=== PATIENT | female | born 1970 | race Caucasian/White ===

== ENCOUNTER 2017-03-12 00:28 | Emergency (ER) | payer BC, OTHER ==
[~2017-03-12] VITALS: Ht 165.1 cm; Wt 97.5 kg
[~2017-03-12 00:28] MED LIST: BP MED; DICL75TA2 PO; DOCU100C37 PO; FAMO20TA5 PO; HYDR-3720 PO; HYDR-3816 PO; IBUP-1773 PO; KETO-22 PO; MAG30ORA2 PO; METH750T3 PO; ORPH100T PO; PHEN37.53 PO; PRD20T PO; PRM25T PO; SIME80TA16 PO; SPIR50TA2 PO; TOPI25TA10 PO; TRAM-21 PO; Throat Lozenges MT
[2017-03-12] MEDS ORDERED: NS IV 1000 ML 1,000 ML IV STA (00:55)
[2017-03-12] MEDS ORDERED: ONDANSETRON 4 MG/2 ML (SDV) Z0FRAN IVP ONE (01:00)
--- NOTE | 2017-03-12 01:01 | ED Abdominal Pain ---
General Chief Complaint: Abdominal/GI Problems Stated Complaint: FLU VOMITING HAD 2 DRINKS Source of Information: Patient Exam Limitations: No Limitations History of Present Illness Time Seen By Provider: 00:45 Initial Comments Here with report of vomiting tonight. Apparently started feeling sick about 4 days ago and had a vomiting and diarrhea illness for 2 days and then was getting better. She is recently going through a divorce and wanted to celebrate jose ramon with her family. She had 2 drinks tonight and then started vomiting. She vomited multiple times tonight and states she does not feel well. Denies diarrhea. She lives with her mother who apparently has had strep throat and influenza a recently. Timing/Duration: 3-4 Days, Getting Worse Severity/Quality: Moderate, Cramping Location: Epigastric Radiation: No Radiation Activities at Onset: None Associated Symptoms: No Back Pain, No Chest Pain, Fever/Chills, Fatigue, Nausea /Vomiting, Weakness Allergies and Home Medications Allergies Coded Allergies: Penicillins (Verified Adverse Reaction, Mild, PT FATHER ALLERGIC, PT HERSELF HAS NOT REACTED TO PCN, 02/18/07) Home Medications Diclofenac Sodium 75 Mg Tablet.dr, 75 MG PO BID, (Reported) Docusate Sodium 100 Mg Capsule, 100 MG PO BID PRN for CONSTIPATION, #60 Prescribed by: ENDER BOLAÑOS on 04/27/151845 Hydrocodone/Acetaminophen 1 Each Tablet, 1-2 EA PO Q6H PRN for PAIN, #45 Ref 0 Prescribed by: ENDER BOLAÑOS on 04/27/151844 Ibuprofen 600 Mg Tablet, 600 MG PO Q6H PRN for PAIN, #40 Ref 1 Prescribed by: ENDER BOLAÑOS on 04/27/151844 Mag Hydrox/Al Hydrox/Simeth 30 Ml Oral.susp, 30 ML PO QID PRN for INDIGESTION, # 1 Prescribed by: ENDER BOLAÑOS on 04/27/151845 Phentermine HCl 37.5 Mg Tablet, 56.25 MG PO DAILY, (Reported) TAKE 1 & 1/2 OF 37.5 TAB Simethicone 80 Mg Tab.chew, 40 MG PO TID PRN for INDIGESTION, #60 Prescribed by: ENDER BOLAÑOS on 04/27/151845 Spironolactone 50 Mg Tablet, 50 MG PO DAILY, (Reported) Topiramate 25 Mg Tablet, 25 MG PO DAILY, (Reported) [Throat Lozenges] 1 EA LOZG, 1 EA MT Q3H PRN for SORE THROAT Prescribed by: ENDER BOLAÑOS on 04/27/15 1846 Review of Systems Constitutional: see HPI, No chills, No fever, malaise EENTM: No Symptoms Reported Respiratory: No Symptoms Reported Cardiovascular: No Symptoms Reported Gastrointestinal: See HPI, Abdominal Pain, Diarrhea, Nausea, Vomiting Genitourinary: No Symptoms Reported Musculoskeletal: No joint pain, muscle pain Skin: no symptoms reported Psychiatric/Neurological: No Symptoms Reported Past Mxbabtm-Ahlekq-Vaojnv Hx Patient Social History Alcohol Use: Occasionally Uses Recreational Drug Use: No Smoking Status: Former Smoker Type Used: Cigarettes 2nd Hand Smoke Exposure: No Recent Foreign Travel: No Contact w/Someone Who Travel: No Recent Hopitalizations: No Seasonal Allergies Seasonal Allergies: No Surgeries History of Surgeries: Yes (ECTOPIC W/ SALPINGECTOMY, RHINOPLASTY) Surgeries: Bladder Surgery, Hysterectomy, Tubal Ligation Respiratory History of Respiratory Disorde: No Respiratory Disorders: Asthma Cardiovascular History of Cardiac Disorders: Yes Cardiac Disorders: Hypertension Neurological History of Neurological Disord: No Neurological Disorders: Headaches /Migraines 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 System Hx 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 Disorders: Yes Sexually Transmitted Disease: Yes (HX OF PID) 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 Gastrointestinal History of Gastrointestinal Di: Yes (ELEVATED LIVER ENZYMES, ) Musculoskeletal History of Musculoskeletal Dis: No Musculoskeletal Disorders: Arthritis Endocrine History of Endocrine Disorders: Yes (USED TO TAKE THYROID MEDS) Endocrine Disorders: Hypothyroidsim Cancer History of Cancer: No Psychosocial History of Psychiatric Problem: Yes Behavioral Health Disorders: Depression Integumentary History of Skin or Integumenta: No Blood Transfusions History of Blood Disorders: No Reviewed Nursing Assessment Reviewed/Agree w Nursing PMH: Yes Family Medical History Significant Family History: No Pertinent Family Hx Family Medial History: Drug abuse 19 FATHER Thyroid disease 19 MOTHER Physical Exam Vital Signs VS - Last 72 Hours, by Label 03/12/17 00:45 Temp 97.0 Pulse 66 Resp 20 B/P (MAP) 144/95 (111) Pulse Ox 100 O2 Delivery Room Air Capillary Refill : General Appearance: WD/WN, no apparent distress HEENT: PERRL/EOMI, pharynx normal Neck: full range of motion, supple Respiratory: lungs clear, normal breath sounds Cardiovascular: regular rate, rhythm, no murmur Gastrointestinal: normal bowel sounds, non tender, soft Extremities: non-tender, normal inspection Back: normal inspection, no CVA tenderness, no vertebral tenderness Neurologic/Psychiatric: alert, oriented x 3 Skin: normal color, warm/dry Progress/Results/Core Measures Results/Orders Lab Results Laboratory Tests Test 03/12/17 01:05 03/12/17 01:52 Range/Units White Blood Count 9.0 4.3-11.0 10^3/uL Red Blood Count 4.49 4.35-5.85 10^6/uL Hemoglobin 14.4 11.5-16.0 G/DL Hematocrit 43 35-52 % Mean Corpuscular Volume 95 80-99 FL Mean Corpuscular Hemoglobin 32 25-34 PG Mean Corpuscular Hemoglobin Concent 34 32-36 G/DL Red Cell Distribution Width 12.4 10.0-14.5 % Platelet Count 319 130-400 10^3/uL Mean Platelet Volume 8.5 7.4-10.4 FL Neutrophils (%) (Auto) 58 42-75 % Lymphocytes (%) (Auto) 31 12-44 % Monocytes (%) (Auto) 8 0-12 % Eosinophils (%) (Auto) 3 0-10 % Basophils (%) (Auto) 0 0-10 % Neutrophils # (Auto) 5.2 1.8-7.8 X 10^3 Lymphocytes # (Auto) 2.8 1.0-4.0 X 10^3 Monocytes # (Auto) 0.7 0.0-1.0 X 10^3 Eosinophils # (Auto) 0.2 0.0-0.3 10^3/uL Basophils # (Auto) 0.0 0.0-0.1 10^3/uL Sodium Level 141 135-145 MMOL/L Potassium Level 3.8 3.6-5.0 MMOL/L Chloride Level 107 98-107 MMOL/L Carbon Dioxide Level 24 21-32 MMOL/L Anion Gap 10 5-14 MMOL/L Blood Urea Nitrogen 20 H 7-18 MG/DL Creatinine 0.72 0.60-1.30 MG/DL Estimat Glomerular Filtration Rate > 60 BUN/Creatinine Ratio 28 Glucose Level 119 H 70-105 MG/DL Calcium Level 8.7 8.5-10.1 MG/DL Total Bilirubin 0.3 0.1-1.0 MG/DL Aspartate Amino Transf (AST/SGOT) 26 5-34 U/L Alanine Aminotransferase (ALT/SGPT) 31 0-55 U/L Alkaline Phosphatase 70 40-136 U/L Total Protein 6.8 6.4-8.2 GM/DL Albumin 3.9 3.2-4.5 GM/DL Serum Alcohol 127 H <10 MG/DL Urine Color YELLOW Urine Clarity CLEAR Urine pH 6 5-9 Urine Specific Kramer 1.020 1.016-1.022 Urine Protein NEGATIVE NEGATIVE Urine Glucose (UA) NEGATIVE NEGATIVE Urine Ketones NEGATIVE NEGATIVE Urine Nitrite NEGATIVE NEGATIVE Urine Bilirubin NEGATIVE NEGATIVE Urine Urobilinogen NORMAL NORMAL MG/DL Urine Leukocyte Esterase 2+ H NEGATIVE Urine RBC (Auto) 4+ H NEGATIVE Urine RBC 2-5 H /HPF Urine WBC 0-2 /HPF Urine Squamous Epithelial Cells 25-50 H /HPF Urine Crystals NONE /LPF Urine Bacteria TRACE /HPF Urine Casts NONE /LPF Urine Mucus NEGATIVE /LPF Urine Culture Indicated NO My Orders Orders - LENNOX GAGNON MD Alcohol (03/12/17 00:55) Cbc With Automated Diff (03/12/17 00:55) Comprehensive Metabolic Panel (03/12/17 00:55) Ua Culture If Indicated (03/12/17 00:55) Ondansetron Injection (Zofran Injectio (03/12/17 01:00) Ns Iv 1000 Ml (Sodium Chloride 0.9%) (03/12/17 00:55) Saline Lock/Iv-Start (03/12/17 00:55) Ns Iv 1000 Ml (Sodium Chloride 0.9%) (03/12/17 01:40) Medications Given in ED Current Medications Medications Dose Ordered Sig/Miah Route Start Time Stop Time Status Last Admin Dose Admin Ondansetron HCl 4 mg ONCE ONCE IVP 03/12/17 01:00 03/12/17 01:01 DC 03/12/17 01:05 4 MG Sodium Chloride 1,000 ml @ 0 mls/hr Q0M ONCE IV 03/12/17 01:40 03/12/17 01:41 DC 03/12/17 02:15 0 MLS/HR Vital Signs/I&O Vital Sign - Last 12Hours 03/12/17 00:45 Temp 97.0 Pulse 66 Resp 20 B/P (MAP) 144/95 (111) Pulse Ox 100 O2 Delivery Room Air Progress Note : Progress Note Seen and evaluated. IV, labs and UA ordered. Normal saline 1 L bolus. Zofran 4 mg IV. Monitor patient. 0205: Overall much better. Repeat normal saline 1 L bolus ordered. Discharged home after with return precautions. Patient verbalize understanding instructions and agreement with plan. Departure Impression Impression: Primary Impression: Nausea and vomiting Qualified Codes: R11.2 - Nausea with vomiting, unspecified Additional Impression: Epigastric abdominal pain Disposition: HOME, SELF-CARE Condition: Improved Departure-Patient Inst. Decision time for Depature: 02:27 Referrals: MOHINDER MARIN DO (PCP/Family) Primary Care Physician Patient Instructions: Acute Abdomen (Belly Pain), Adult (DC), Nausea and Vomiting, Adult (DC) Add. Discharge Instructions: All discharge instructions reviewed with patient and/or family. Voiced understanding. Clear liquid diet for 24 hours and then advance as tolerated. Follow-up with your Dr. in a few days for recheck. Return for worse pain, fever, vomiting, weakness, breathing problems or other concerns as needed. Drink plenty of fluids been taking small sips frequently. LENNOX GAGNON MD Mar 12, 2017 01:01
[2017-03-12 01:11] LABS: BASOPHILS % (AUTO) 0 % (0-10); EOSINOPHILS # (AUTO) 0.2 10^3/uL (0.0-0.3); EOSINOPHILS % (AUTO) 3 % (0-10); HEMATOCRIT 43 % (35-52); HEMOGLOBIN 14.4 G/DL (11.5-16.0); LYMPHOCYTES # (AUTO) 2.8 X 10^3 (1.0-4.0); LYMPHOCYTES % (AUTO) 31 % (12-44); MEAN CORPUSCULAR HEMOGLOBIN 32 PG (25-34); MEAN CORPUSCULAR HGB CONC 34 G/DL (32-36); MEAN CORPUSCULAR VOLUME 95 FL (80-99); MEAN PLATELET VOLUME 8.5 FL (7.4-10.4); MONOCYTES # (AUTO) 0.7 X 10^3 (0.0-1.0); MONOCYTES % (AUTO) 8 % (0-12); NEUTROPHILS # (AUTO) 5.2 X 10^3 (1.8-7.8); NEUTROPHILS % (AUTO) 58 % (42-75); PLATELET COUNT 319 10^3/uL (130-400); RED BLOOD COUNT 4.49 10^6/uL (4.35-5.85); RED CELL DISTRIBUTION WIDTH 12.4 % (10.0-14.5)
[2017-03-12 01:31] LABS: ALANINE AMINOTRANSFERASE 31 U/L (0-55); ALBUMIN 3.9 GM/DL (3.2-4.5); ALKALINE PHOSPHATASE 70 U/L (40-136); BILIRUBIN,TOTAL 0.3 MG/DL (0.1-1.0); BUN/CREATININE RATIO 28; CALCIUM 8.7 MG/DL (8.5-10.1); CARBON DIOXIDE 24 MMOL/L (21-32); CHLORIDE 107 MMOL/L (98-107); CREATININE SERUM 0.72 MG/DL (0.60-1.30); GFR ESTIMATED > 60; GLUCOSE 119 MG/DL (70-105); POTASSIUM 3.8 MMOL/L (3.6-5.0); SODIUM 141 MMOL/L (135-145); TOTAL PROTEIN 6.8 GM/DL (6.4-8.2)
[2017-03-12] MEDS ORDERED: NS IV 1000 ML 1,000 ML IV ONE (01:40)
[2017-03-12 02:01] LABS: BILIRUBIN,URINE NEGATIVE (NEGATIVE); CLARITY,URINE CLEAR; COLOR,URINE YELLOW; GLUCOSE, URINE (UA) NEGATIVE (NEGATIVE); KETONES,URINE NEGATIVE (NEGATIVE); LEUKOCYTE ESTERASE ,URINE 2+ (NEGATIVE); NITRITE,URINE NEGATIVE (NEGATIVE); PH,URINE 6 (5-9); PROTEIN,URINE NEGATIVE (NEGATIVE); UROBILINOGEN,URINE NORMAL (NORMAL)
[2017-03-12 02:18] LABS: BACTERIA,URINE TRACE /HPF; SQUAMOUS EPITHELIAL CELL,UR 25-50 /HPF; WBC,URINE 0-2 /HPF
[2017-03-13 02:06] VITALS: BP 144/95
== END 2017-03-12 03:10 | disposition home or self-care (01) ==
LOC: EDUNIT# 00:28 → ER 00:31
DX: R11.2 Nausea with vomiting, unspecified (principal); R10.13 Epigastric pain; J45.909 Unspecified asthma, uncomplicated; I10 Essential (primary) hypertension; G43.909 Migraine, unspecified, not intractable, without status migrainosus; E03.9 Hypothyroidism, unspecified; Z87.891 Personal history of nicotine dependence; Z90.710 Acquired absence of both cervix and uterus; Z98.51 Tubal ligation status
CPT/HCPCS: 36415; 80053; 80320; 81000; 85025

== ENCOUNTER 2017-04-14 18:00 | Emergency (ER) | payer BC ==
[~2017-04-14] VITALS: Ht 167.6 cm; Wt 97.5 kg
[~2017-04-14 18:00] MED LIST changes: +HYDR-34 PO; -HYDR-3816 PO
--- OUTSIDE RECORDS SUMMARY | 2017-04-14 18:05 | XMS REPORT | CCD ---
Author Author HORACIO BERRY Unknown Address [address] [address] [place] [address] Care Team Providers Care Crisis Counselor Name Role Phone PEDRITO SAUL MD Attphys RENATA ANGEL, FELI Delgado Allergies Unknown or Not Available. Active Medications Unknown or Not Available. Problems Unknown or Not Available. Procedures Procedure Code Procedure Type Date CERVICAL SPINE; 2 VIEWS OR [id number] Results Unknown or Not Available. Encounters Encounter Diagnosis Diagnosis Code Start Date Strain of muscle, fascia and tendon at neck level, initial encounter [id number] 04/30/2016 Function Status Unknown or Not Available. History of Immunizations Immunization Code Date influenza, split (incl. purified surface antigen) 15 01/23/2002 Plan of Treatment Unknown or Not Available. Social History Unknown or Not Available. Vital Signs Unknown or Not Available. Function Status Unknown or Not Available. Goals Unknown or Not Available. ASSESSMENTS Unknown or Not Available. Health Concerns Section Unknown or Not Available.
[2017-04-14] MEDS ORDERED: ONDANSETRON 4 MG (ZOFRAN) ORAL DISSOLVE TAB PO ONE (19:00)
[2017-04-14] MEDS ORDERED: KETOROLAC 30 MG/ML VIAL IM ONE (19:00)
--- NOTE | 2017-04-14 19:05 | ED Neck-Back Pain/Injury ---
General Chief Complaint: Head/Cervical Problems Stated Complaint: NAUSEA,HEADACHE Nursing Triage Note: c/o headache/nausea. Reports right arm pain x 3 months. Pt thought it was related to her flu shot. Also reports history or fever/cough/chills 2 weeks ago but those symptoms have resolved. Pt has a OP Rx (EKG, carotid doppler) signed by Dr. Mendez that she has not been performed yet with her. Nursing Sepsis Screen: No Definite Risk Source of Information: Patient Exam Limitations: No Limitations History of Present Illness Date Seen by Provider: Apr 14, 2017 Time Seen by Provider: 18:52 Initial Comments Patient resists ER by private conveyance with a three-month history of waxing and waning neck and back pain. Mostly in her upper neck. No history of trauma. She's been seen by her primary care physician is doing some workup, labs and imaging but she was looking for something to help with the pain today. She is using Tylenol and heating pads. The pain in her neck was eating or headache so severe when she woke up this morning she was having some nausea. She has not vomited she has no fevers, chills, cough, lays. 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 Patient was afraid to go to the chiropractor until she had her back imaging and she is afraid she might have some kind of a herniated disc or something that a chiropractor might make worse. The patient is denying anything, some bowel bladder, numbness, weakness, falls, blurry vision, double vision. Her pain some times radiates down her right shoulder with a tingling sensation. An hour and a half prior to arrival the patient took 2 Excedrin migraine tablets and she's feels that her headache has resolved almost completely now. Allergies and Home Medications Allergies Coded Allergies: Penicillins (Verified Adverse Reaction, Mild, PT FATHER ALLERGIC, PT HERSELF HAS NOT REACTED TO PCN, 02/18/07) Home Medications Diclofenac Sodium 75 Mg Tablet., 75 MG PO BID, (Reported) Docusate Sodium 100 Mg Capsule, 100 MG PO BID PRN for CONSTIPATION, #60 Prescribed by: ENDER BOLAÑOS on 04/27/15 2515 Hydrocodone Bit/Acetaminophen 1 Each Tablet, 1-2 EA PO Q6H PRN for PAIN, #45 Ref 0 Prescribed by: ENDER BOLAÑOS on 04/27/151844 Ibuprofen 600 Mg Tablet, 600 MG PO Q6H PRN for PAIN, #40 Ref 1 Prescribed by: ENDER BOLAÑOS on 04/27/151844 Mag Hydrox/Al Hydrox/Simeth 30 Ml Oral.susp, 30 ML PO QID PRN for INDIGESTION, # 1 Prescribed by: ENDER BOLAÑOS on 04/27/151845 Phentermine HCl 37.5 Mg Tablet, 56.25 MG PO DAILY, (Reported) TAKE 1 & 1/2 OF 37.5 TAB Simethicone 80 Mg Tab.chew, 40 MG PO TID PRN for INDIGESTION, #60 Prescribed by: ENDER BOLAÑOS on 04/27/151845 Spironolactone 50 Mg Tablet, 50 MG PO DAILY, (Reported) Topiramate 25 Mg Tablet, 25 MG PO DAILY, (Reported) [Throat Lozenges] 1 EA LOZG, 1 EA MT Q3H PRN for SORE THROAT Prescribed by: ENDER BOLAÑOS on 04/27/151845 Constitutional: No chills, No diaphoresis EENTM: No ear discharge, No ear pain Respiratory: No cough, No short of breath Cardiovascular: No chest pain, No palpitations Gastrointestinal: No abdominal pain, No nausea, No vomiting Genitourinary: No discharge, No dysuria Past Ahqjwal-Avbkdy-Hcyzkm Hx Patient Social History Alcohol Use: Occasionally Uses Recreational Drug Use: No Smoking Status: Current Everyday Smoker Type Used: Cigarettes 2nd Hand Smoke Exposure: No Recent Foreign Travel: No Contact w/Someone Who Travel: No Recent Infectious Disease Expo: No Recent Hopitalizations: No Seasonal Allergies Seasonal Allergies: No Surgeries History of Surgeries: Yes (ECTOPIC W/ SALPINGECTOMY, RHINOPLASTY) Surgeries: Bladder Surgery, Hysterectomy, Tubal Ligation Respiratory History of Respiratory Disorde: No Respiratory Disorders: Asthma Cardiovascular History of Cardiac Disorders: Yes Cardiac Disorders: Hypertension Neurological History of Neurological Disord: No Neurological Disorders: Headaches /Migraines 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 System Hx 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 Disorders: Yes Sexually 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 Disease: Yes (HX OF PID) 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 Gastrointestinal History of Gastrointestinal Di: Yes (ELEVATED LIVER ENZYMES, ) Musculoskeletal History of Musculoskeletal Dis: No Musculoskeletal Disorders: Arthritis Endocrine History of Endocrine Disorders: Yes (USED TO TAKE THYROID MEDS) Endocrine Disorders: Hypothyroidsim Cancer History of Cancer: No Psychosocial History of Psychiatric Problem: Yes Behavioral Health Disorders: Depression Integumentary History of Skin or Integumenta: No Blood Transfusions History of Blood Disorders: No Family Medical History Significant Family History: No Pertinent Family Hx Family Medial History: Drug abuse 19 FATHER Thyroid disease 19 MOTHER Physical Exam Vital Signs Vital Sign - Last 12Hours 04/14/17 18:25 Temp 98.1 Pulse 82 Resp 16 B/P (MAP) 163/111 (128) Pulse Ox 98 O2 Delivery Room Air Capillary Refill : Less Than 3 Seconds General Appearance: No Apparent Distress, WD/WN HEENT: PERRL/EOMI, TMs Normal, Normal ENT Inspection, Pharynx Normal Neck: Full Range of Motion, Normal Inspection, Non Tender, Supple Cardiovascular: Regular Rate, Rhythm, No Edema, No Gallop, No JVD, No Murmur, Normal Peripheral Pulses Respiratory: Chest Non Tender, Lungs Clear, Normal Breath Sounds Peripheral Pulses: 2+ Radial Pulses (R), 2+ Radial Pulses (L) Back: Normal Inspection, Other (midline cervical spine at C5 through C7 as well as right lateral neck posterior tenderness.) Extremity: Normal Capillary Refill, Normal Inspection Neurologic/Psychiatric: Alert, Oriented x3, No Motor/Sensory Deficits, Normal Mood/Affect Progress/Results/Core Measures Results/Orders My Orders Orders - PATI GARCIA Ondansetron Oral Dissolve Tab (Zofran (04/14/17 19:00) Ketorolac Injection (Toradol Injection) (04/14/17 19:00) Vital Signs/I&O Vital Sign - Last 12Hours 04/14/17 18:25 Temp 98.1 Pulse 82 Resp 16 B/P (MAP) 163/111 (128) Pulse Ox 98 O2 Delivery Room Air Blood Pressure Mean: 128 Progress Note : Time: 19:02 Progress Note No red flags for her pain. Appears to be chronic in nature and recurrent. We'll start with some NSAID therapy, heat ice, muscle relaxers and something for her nausea and have her follow-up with her primary care physician. Departure Impression Impression: Primary Impression: Neck pain Additional Impressions: Nausea Headache Qualified Codes: G44.209 - Tension-type headache, unspecified, not intractable Disposition: 01 HOME, SELF-CARE Condition: Stable Departure-Patient Inst. Decision time for Depature: 19:06 Referrals: MOHINDER MARIN DO (PCP/Family) Primary Care Physician Patient Instructions: Neck Stretches Add. Discharge Instructions: Drink plenty of fluids and use some kind of an NSAID routinely for the next week or 2. I suggest either 2 capsules of Naprosyn twice a day or ibuprofen 800 mg 3 times a day. You can use 1000 mg of Tylenol every 8 hours as needed for breakthrough pain. If you're having muscle tension or spasming you can take one tablet of Flexeril every 8 hours. If you have nausea you can take a tablet of Zofran every 6 hours. Follow-up with your primary care physician for further evaluation and management of your back and neck pain. Review the handout on neck exercises and work to strengthen her core muscles. All discharge instructions reviewed with patient and/or family. Voiced understanding. Scripts Cyclobenzaprine HCl (Cyclobenzaprine HCl) 10 Mg Tablet 10 MG PO Q8H Y for SPASMS, #15 TAB 0 Refills Prov: PATI GARCIA 04/14/17 Ondansetron (Zofran Odt) 4 Mg Tab.rapdis 4 MG PO Q6H Y for NAUSEA/VOMITING-1ST LINE, #10 TAB 0 Refills Prov: PATI GARCIA 04/14/17 Copy Copies To 1: MOHINDER MARIN TITUS J Apr 14, 2017 19:05
[2017-04-14] MEDS ORDERED: CYCL10TA9 PO (19:09)
[2017-04-14] MEDS ORDERED: ONDA4TAB8 PO (19:09)
[2017-04-14] MEDS ORDERED: RX-CYCLOBENZAPRINE 10 MG (FLEXERIL) TAB PPK#3 PO STA (19:12)
[2017-04-14 19:23] VITALS: BP 154/108
== END 2017-04-14 19:23 | disposition home or self-care (01) ==
LOC: EDUNIT# 18:00 → ER 18:02
DX: M54.2 Cervicalgia (principal); R51 Headache; R11.0 Nausea; J45.909 Unspecified asthma, uncomplicated; I10 Essential (primary) hypertension; F32.9 Major depressive disorder, single episode, unspecified; E03.9 Hypothyroidism, unspecified; G43.909 Migraine, unspecified, not intractable, without status migrainosus; F17.210 Nicotine dependence, cigarettes, uncomplicated; Z98.51 Tubal ligation status; Z90.710 Acquired absence of both cervix and uterus; Z88.0 Allergy status to penicillin
CPT/HCPCS: 96372; 99283

== ENCOUNTER → 2017-04-17 | Outpatient (CLI) | payer BC ==
[~2017-04-17] MED LIST changes: +CYCL10TA9 PO; +ONDA4TAB8 PO
--- NOTE | 2017-04-17 17:01 | Diagnostic Imaging Report ---
PROCEDURE: US carotid duplex, bilateral. TECHNIQUE: Multiple real-time grayscale images were obtained over the carotid arteries in various projections, bilaterally. Additional duplex Doppler and color Doppler images were also obtained. INDICATION: Neck pain, numbness in arms. FINDINGS: There is little soft plaque formation in the carotid systems. The flow velocities failed to show any sign of a hemodynamically significant stenosis of the common or internal carotid arteries. Both vertebral arteries are noted and there is antegrade flow bilaterally. IMPRESSION: There is no evidence for a hemodynamically significant stenosis of either carotid system. Dictated by: Dictated on workstation # [id number]
--- NOTE | 2017-04-17 17:12 | Diagnostic Imaging Report ---
EXAMINATION: Cervical spine. INDICATION: Neck pain. FINDINGS: AP, lateral and odontoid views were obtained. There are no prior studies available for comparison. The lateral view does show straightening of the cervical spine. This may be secondary to muscle spasm and/or positioning. The vertebral body heights are within normal limits. There is mild narrowing of the C6-C7 disc space. The other intervertebral disc spaces are fairly well maintained. There is no fracture or acute bony abnormality evident. There is no sign of retropharyngeal edema. The lung apices are clear. IMPRESSION: 1. The straightening of the cervical spine may be secondary to muscle spasm and/or positioning. There is no acute bony abnormality noted. 2. There is mild degenerative disc disease at C6-C7. 3. If clinical concern regarding an underlying abnormality persists, then MRI will be recommended for further study. Dictated by: Dictated on workstation # [id number]
== END ==
LOC: RAD 16:09
PROVIDERS: ATTEND Nurse Practitioner Family
DX: M50.323 Other cervical disc degeneration at C6-C7 level (principal); R20.0 Anesthesia of skin
CPT/HCPCS: 72040; 93880

== ENCOUNTER → 2018-01-28 | Outpatient (CLI) | payer BC ==
[~2018-01-28] MED LIST changes: -SPIR50TA2 PO; +SPIR50TA4 PO
[2018-01-28 18:07] LABS: HEMOGLOBIN 13.9 G/DL (11.5-16.0); MEAN PLATELET VOLUME 8.3 FL (7.4-10.4); RED BLOOD COUNT 4.49 10^6/uL (4.35-5.85); RED CELL DISTRIBUTION WIDTH 12.4 % (10.0-14.5); WHITE BLOOD COUNT 7.9 10^3/uL (4.3-11.0)
[2018-01-28 18:15] LABS: BILIRUBIN,URINE NEGATIVE (NEGATIVE); CLARITY,URINE CLEAR; COLOR,URINE YELLOW; GLUCOSE, URINE (UA) NEGATIVE (NEGATIVE); KETONES,URINE 1+ (NEGATIVE); LEUKOCYTE ESTERASE ,URINE NEGATIVE (NEGATIVE); NITRITE,URINE NEGATIVE (NEGATIVE); PH,URINE 6 (5-9); PROTEIN,URINE NEGATIVE (NEGATIVE); UROBILINOGEN,URINE NORMAL (NORMAL)
[2018-01-28 18:21] LABS: BACTERIA,URINE NEGATIVE /HPF
[2018-01-28 18:27] LABS: ALANINE AMINOTRANSFERASE 21 U/L (0-55); ALBUMIN 4.2 GM/DL (3.2-4.5); ALKALINE PHOSPHATASE 76 U/L (40-136); BILIRUBIN,TOTAL 0.7 MG/DL (0.1-1.0); BUN/CREATININE RATIO 16; CALCIUM 8.9 MG/DL (8.5-10.1); CARBON DIOXIDE 22 MMOL/L (21-32); CHLORIDE 107 MMOL/L (98-107); CREATININE SERUM 0.82 MG/DL (0.60-1.30); GFR ESTIMATED > 60; GLUCOSE 84 MG/DL (70-105); POTASSIUM 3.4 MMOL/L (3.6-5.0); SODIUM 137 MMOL/L (135-145); TOTAL PROTEIN 7.1 GM/DL (6.4-8.2)
--- NOTE | 2018-01-28 18:51 | Diagnostic Imaging Report ---
INDICATION: Preop, varicosities. FINDINGS: Cardiomediastinal and hilar contours are normal. The lungs are clear. No vascular congestion, edema, pneumonia, effusion, or pneumothorax. IMPRESSION: Negative. Dictated by: Dictated on workstation # [id number]
== END ==
LOC: LAB 17:45
PROVIDERS: ATTEND Family Medicine
DX: Z01.811 Encounter for preprocedural respiratory examination (principal); Z01.812 Encounter for preprocedural laboratory examination; I83.90 Asymptomatic varicose veins of unspecified lower extremity
CPT/HCPCS: 36415; 71046; 80053; 81000; 85027

== ENCOUNTER → 2018-02-05 | Outpatient (CLI) | payer BC ==
[2018-02-05 12:43] LABS: BASOPHILS % (AUTO) 0 % (0-10); EOSINOPHILS # (AUTO) 0.2 10^3/uL (0.0-0.3); EOSINOPHILS % (AUTO) 2 % (0-10); HEMATOCRIT 43 % (35-52); HEMOGLOBIN 14.5 G/DL (11.5-16.0); LYMPHOCYTES # (AUTO) 2.9 X 10^3 (1.0-4.0); LYMPHOCYTES % (AUTO) 33 % (12-44); MEAN CORPUSCULAR HEMOGLOBIN 31 PG (25-34); MEAN CORPUSCULAR HGB CONC 34 G/DL (32-36); MEAN CORPUSCULAR VOLUME 93 FL (80-99); MEAN PLATELET VOLUME 8.4 FL (7.4-10.4); MONOCYTES # (AUTO) 0.8 X 10^3 (0.0-1.0); MONOCYTES % (AUTO) 9 % (0-12); NEUTROPHILS # (AUTO) 4.9 X 10^3 (1.8-7.8); NEUTROPHILS % (AUTO) 56 % (42-75); PLATELET COUNT 368 10^3/uL (130-400); RED BLOOD COUNT 4.64 10^6/uL (4.35-5.85); RED CELL DISTRIBUTION WIDTH 12.8 % (10.0-14.5); WHITE BLOOD COUNT 8.8 10^3/uL (4.3-11.0)
[2018-02-05 12:48] LABS: BILIRUBIN,URINE NEGATIVE (NEGATIVE); CLARITY,URINE CLEAR; COLOR,URINE YELLOW; GLUCOSE, URINE (UA) NEGATIVE (NEGATIVE); KETONES,URINE 1+ (NEGATIVE); LEUKOCYTE ESTERASE ,URINE NEGATIVE (NEGATIVE); NITRITE,URINE NEGATIVE (NEGATIVE); PH,URINE 5 (5-9); PROTEIN,URINE NEGATIVE (NEGATIVE); UROBILINOGEN,URINE NORMAL (NORMAL)
[2018-02-05 12:59] LABS: BACTERIA,URINE NEGATIVE /HPF; SQUAMOUS EPITHELIAL CELL,UR 0-2 /HPF; WBC,URINE RARE /HPF
[2018-02-05 13:00] LABS: ALANINE AMINOTRANSFERASE 22 U/L (0-55); ALBUMIN 4.4 GM/DL (3.2-4.5); ALKALINE PHOSPHATASE 73 U/L (40-136); BILIRUBIN,TOTAL 0.8 MG/DL (0.1-1.0); BUN/CREATININE RATIO 17; CALCIUM 9.4 MG/DL (8.5-10.1); CARBON DIOXIDE 22 MMOL/L (21-32); CHLORIDE 104 MMOL/L (98-107); CREATININE SERUM 0.84 MG/DL (0.60-1.30); GFR ESTIMATED > 60; GLUCOSE 99 MG/DL (70-105); POTASSIUM 3.7 MMOL/L (3.6-5.0); SODIUM 138 MMOL/L (135-145); TOTAL PROTEIN 7.3 GM/DL (6.4-8.2)
== END ==
LOC: LAB 12:27
PROVIDERS: ATTEND Thoracic Surgery (Cardiothoracic Vascular Surgery)
DX: Z01.812 Encounter for preprocedural laboratory examination (principal); I83.813 Varicose veins of bilateral lower extremities with pain
CPT/HCPCS: 36415; 80053; 81000; 85025

== ENCOUNTER 2018-04-28 18:05 | Emergency (ER) | payer SELFPAY ==
[~2018-04-28] VITALS: Ht 165.1 cm; Wt 103.0 kg
[2018-04-28 18:46] LABS: CLARITY,URINE SLIGHTLY CLOUDY; COLOR,URINE AMBER; GLUCOSE, URINE (UA) NEGATIVE (NEGATIVE); KETONES,URINE NEGATIVE (NEGATIVE); LEUKOCYTE ESTERASE ,URINE 2+ (NEGATIVE); NITRITE,URINE POSITIVE (NEGATIVE); PH,URINE 5 (5-9); PROTEIN,URINE 2+ (NEGATIVE); UROBILINOGEN,URINE 8 MG/DL (NORMAL)
--- NOTE | 2018-04-28 19:06 | ED General ---
General Chief Complaint: -Female Stated Complaint: PAINFULL URINATION Nursing Triage Note: STATES SHE HAS BEEN FIGHTING A UTI AND BRONCHIAL INFECTION SINCE THE END OF FEB. TOOK AZO TODAY. Nursing Sepsis Screen: No Definite Risk Source of Information: Patient History of Present Illness Date Seen by Provider: Apr 28, 2018 Time Seen by Provider: 18:38 Initial Comments PT ARRIVES VIA POV FROM HOME PT WITH SEVERAL COMPLAINTS C/O UTI SYMPTOMS SINCE 03/06/18--HAS NOT SOUGHT CARE STATES SHE IS HAVING ALOT OF PAIN, BURNING, URGENCY AND FREQUENCY C/O LOWER ABDOMINAL DISCOMFORT HAS HAD INTERMITTENT LOWER BACK PAIN--NO BACK PAIN NOW HAS HAD LOW GRADE SUBJECTIVE FEVER AND CHILLS OFF AND ON HAS HAD COLD SYMPTOMS OFF AND ON FOR THE LAST COUPLE OF WEEKS NON-PRODUCTIVE COUGH AND CONGESTION NO CHEST PAIN OR PAIN WITH BREATHING NO SHORTNESS OF BREATH STATES SHE HAS HAD NAUSEA AND VOMITING LAST WEEK--WAS BAD FOR 24 HOURS, STILL WITH OCCASIONAL NAUSEA HAS HAD INTERMITTENT DIARRHEA AND CONSTIPATION THROUGH ALL OF THIS STATES SHE IS GETTING READY TO MOVE TO [place], AND QUIT HER JOB THE END OF FEBRUARY AND DOES NOT HAVE INSURANCE ANY LONGER, REASON SHE HAS PUT OFF SEEING A DR PRIETO SYMPTOMS CONTINUE TO GET WORSE NO RELIEF WITH OTC AZO PCP: DR. MARIN Allergies and Home Medications Allergies Coded Allergies: Penicillins (Verified Adverse Reaction, Mild, PT FATHER ALLERGIC, PT HERSELF HAS NOT REACTED TO PCN, 02/18/07) Home Medications No Active Prescriptions or Reported Meds Patient Home Medication List Home Medication List Reviewed: Yes Review of Systems Review of Systems Constitutional: see HPI, chills, fever EENTM: see HPI, nose congestion Respiratory: see HPI, cough; No short of breath, No wheezing Cardiovascular: no symptoms reported; No chest pain Gastrointestinal: see HPI, abdominal pain, diarrhea, nausea, vomiting Genitourinary: see HPI, dysuria, frequency, pain Musculoskeletal: see HPI, back pain Skin: no symptoms reported Psychiatric/Neurological: No Symptoms Reported Hematologic/Lymphatic: No Symptoms Reported Immunological/Allergic: no symptoms reported Past Lnqcxrm-Mjnapb-Xmehij Hx Patient Social History Alcohol Use: Occasionally Uses Recreational Drug Use: Yes (THC) Drug of Choice: POT Smoking Status: Former Smoker Type Used: Cigarettes 2nd Hand Smoke Exposure: No Recent Foreign Travel: No Contact w/Someone Who Travel: No Recent Infectious Disease Expo: No Recent Hopitalizations: No Seasonal Allergies Seasonal Allergies: No Past Medical History Surgeries: Yes (ECTOPIC W/ SALPINGECTOMY, RHINOPLASTY) Bladder Surgery, Hysterectomy, Tubal Ligation Respiratory: No Asthma Cardiac: Yes Hypertension Neurological: Yes Headaches /Migraines : No 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, 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 Sexually Transmitted Disease: Yes (HX OF PID) Genitourinary: Yes Bladder Infection Gastrointestinal: Yes (ELEVATED LIVER ENZYMES, ) Musculoskeletal: No Arthritis Endocrine: Yes (USED TO TAKE THYROID MEDS) Hypothyroidsim Cancer: No Psychosocial: Yes Depression Integumentary: No Blood Disorders: No Family Medical History Drug abuse 19 FATHER Thyroid disease 19 MOTHER No Pertinent Family Hx Physical Exam Vital Signs Vital Signs - First Documented 04/28/18 18:25 Temp 99.4 Pulse 93 Resp 16 B/P (MAP) 188/94 (125) Pulse Ox 98 O2 Delivery Room Air Capillary Refill : Less Than 3 Seconds Height, Weight, BMI Height: 5'5.00" Weight: 227lbs. oz. 102.633008uo; 39.54 BMI Method:Stated General Appearance: No Apparent Distress, WD/WN HEENT: PERRL/EOMI, TMs Normal, Pharynx Normal, Other (MILD NASAL CONGESTION.NO SINUS TENDERNESS) Neck: Full Range of Motion, Normal Inspection, Non Tender, Supple Respiratory: Normal Breath Sounds, No Accessory Muscle Use, No Respiratory Distress Cardiovascular: Regular Rate, Rhythm, No Edema, No JVD, No Murmur, Normal Peripheral Pulses Gastrointestinal: Normal Bowel Sounds, No Organomegaly, No Pulsatile Mass, Soft , Tenderness (MILD SUPRAPUBIC TENDERNESS) Back: Normal Inspection, No CVA Tenderness Extremity: Normal Inspection, No Pedal Edema Neurologic/Psychiatric: Alert, Oriented x3, No Motor/Sensory Deficits, Normal Mood/Affect, account resolution expert II-XII Norm as Tested Skin: Normal Color, Warm/Dry Progress/Results/Core Measures Suspected Sepsis Recent Fever Within 48 Hours: No Infection Criteria Present: Suspected New Infection New/Unexplained Altered Menta: No Sepsis Screen: No Definite Risk SIRS Temperature:99.4 Pulse: 93 Respiratory Rate: 16 Blood Pressure 188 /94 Mean: 125 Results/Orders Lab Results Laboratory Tests Test 04/28/18 18:40 Range/Units Urine Color GERALDO H Urine Clarity SLIGHTLY CLOUDY Urine pH 5 5-9 Urine Specific [place] 1.020 1.016-1.022 Urine Protein 2+ H NEGATIVE Urine Glucose (UA) NEGATIVE NEGATIVE Urine Ketones NEGATIVE NEGATIVE Urine Nitrite POSITIVE H NEGATIVE Urine Bilirubin 3+ H NEGATIVE Urine Urobilinogen 8 H NORMAL MG/DL Urine Leukocyte Esterase 2+ H NEGATIVE Urine RBC (Auto) 2+ H NEGATIVE Urine RBC 5-10 H /HPF Urine WBC >100 H /HPF Urine Squamous Epithelial Cells 0-2 /HPF Urine Renal Epithelial Cells NONE /HPF Urine Crystals NONE /LPF Urine Bacteria FEW H /HPF Urine Casts NONE /LPF Urine Mucus NEGATIVE /LPF Urine Culture Indicated YES My Orders Orders - SHERRIE BILLINGS DO Ua Culture If Indicated (04/28/18 18:38) Urine Culture (04/28/18 18:40) Vital Signs/I&O 04/28/18 18:25 Temp 99.4 Pulse 93 Resp 16 B/P (MAP) 188/94 (125) Pulse Ox 98 O2 Delivery Room Air Capillary Refill : Less Than 3 Seconds Blood Pressure Mean: 125 Departure Impression Primary Impression: Urinary tract infection Additional Impression: Upper respiratory infection Disposition: 01 HOME, SELF-CARE Condition: Stable Departure-Patient Inst. Referrals: MOHINDER MARIN DO (PCP/Family) Primary Care Physician Patient Instructions: Bacterial Upper Respiratory Infection, Adult (DC), Urinary Tract Infection, Adult (DC) Add. Discharge Instructions: LOTS OF CLEAR LIQUIDS TYLENOL AND MOTRIN NEEDED FOR PAIN OR FEVER OVER THE COUNTER MEDICATIONS FOR COUGH AND CONGESTION SUCH CLARITIN, MUCINEX DM, FLONASE FOLLOW UP WITH DR. MARIN IN 3-4 DAYS IF NO BETTER All discharge instructions reviewed with patient and/or family. Voiced understanding. Scripts Phenazopyridine HCl (Pyridium) 200 Mg Tablet 1 TAB PO TID for BLADDER DISCOMFORT, #15 TAB Prov: SHERRIE BILLINGS DO 04/28/18 Cefdinir (Cefdinir) 300 Mg Capsule 300 MG PO BID for FOR INFECTION, #20 CAP Prov: SHERRIE BILLINGS DO 04/28/18 SHERRIE BILLINGS DO Apr 28, 2018 19:06
[2018-04-28 19:19] LABS: BACTERIA,URINE FEW /HPF; SQUAMOUS EPITHELIAL CELL,UR 0-2 /HPF; WBC,URINE >100 /HPF
[2018-04-28 19:20] LABS: BILIRUBIN,URINE 3+ (NEGATIVE)
[2018-04-28] MEDS ORDERED: KETOROLAC 60 MG/2 ML VIAL IM STA (19:29)
[2018-04-28] MEDS ORDERED: cefTRIAXone 1,000 MG/2.86 ml vial (IM ONLY) IM ONE (19:30)
[2018-04-28] MEDS ORDERED: LIDOCAINE 1% INJ 20 ML 20 ML VIAL INJ ONE (19:30)
[2018-04-28] MEDS ORDERED: PHEN-640 PO (19:33)
[2018-04-28] MEDS ORDERED: CEFD300C3 PO (19:33)
[2018-04-28] MEDS ORDERED: KETOROLAC 60 MG/2 ML VIAL ONE (20:06)
[2018-04-28] MEDS ORDERED: LIDOCAINE 1% INJ 20 ML 20 ML VIAL ONE (20:07)
[2018-04-28] MEDS ORDERED: cefTRIAXone 1,000 MG/2.86 ml vial (IM ONLY) ONE (20:07)
[2018-04-28 20:33] VITALS: BP 133/68
== END 2018-04-28 20:33 | disposition home or self-care (01) ==
LOC: EDUNIT# 18:05 → ER 18:06
DX: N39.0 Urinary tract infection, site not specified (principal); J06.9 Acute upper respiratory infection, unspecified; F12.10 Cannabis abuse, uncomplicated; J45.909 Unspecified asthma, uncomplicated; I10 Essential (primary) hypertension; G43.909 Migraine, unspecified, not intractable, without status migrainosus; E03.9 Hypothyroidism, unspecified; F32.9 Major depressive disorder, single episode, unspecified; Z88.0 Allergy status to penicillin; Z87.891 Personal history of nicotine dependence; Z90.710 Acquired absence of both cervix and uterus; Z98.51 Tubal ligation status
CPT/HCPCS: 81000; 87088; 99284

== ENCOUNTER → 2018-05-19 | Outpatient (CLI) | payer SELFPAY ==
[~2018-05-19] MED LIST changes: +CEFD300C3 PO; +PHEN-640 PO
--- NOTE | 2018-05-19 16:01 | Diagnostic Imaging Report ---
INDICATION: Neck injury with neck tightness. TIME OF EXAM: 3:45 PM FINDINGS: Three-view cervical spine shows normal curvature and alignment. There is some degenerative disc disease C6-7 level with disc space narrowing and marginal spurring. Prevertebral tissues are normal. Odontoid appears intact. No fractures are seen. IMPRESSION: No acute bony abnormality is detected. Dictated by: Dictated on workstation # [id number]
== END ==
LOC: RAD 15:02
PROVIDERS: ATTEND Nurse Practitioner Family
DX: S19.9XXA Unspecified injury of neck, initial encounter (principal); S46.919A Strain of unspecified muscle, fascia and tendon at shoulder and upper arm level, unspecified arm, initial encounter; W18.30XA Fall on same level, unspecified, initial encounter
CPT/HCPCS: 72040

== ENCOUNTER 2019-11-17 10:15 | Emergency (ER) | payer SELFPAY ==
[~2019-11-17] VITALS: Ht 167.7 cm; Wt 104.3 kg
[2019-11-17 10:23] VITALS: BP 132/105
[2019-11-17] MEDS ORDERED: NA P133E22 RC (11:01)
[2019-11-17] MEDS ORDERED: ONDA4TAB11 PO (11:01)
[2019-11-17] MEDS ORDERED: POLY119P5 PO (11:01)
--- NOTE | 2019-11-17 11:02 | ED Abdominal Pain ---
General Chief Complaint: Abdominal/GI Problems Stated Complaint: CONSTIPATION Nursing Triage Note: pt amb to rm 3 with complaint of constipation. states has not had a bowel movement in 4 days. states has been passing gas. has taken miralax, laxatives, and a water enema at home. Sepsis Screen: No Definite Risk Source of Information: Patient Exam Limitations: No Limitations History of Present Illness Date Seen by Provider: Nov 17, 2019 Time Seen by Provider: 10:45 Initial Comments the patient presents to ER by private conveyance with 5 days of bloating, distention, constipation. She has a vegan diet and states she is normally quite regular once a day. She has been dealing with her late father's estate and has been quite stressed out. She has tried fleets enema as well as MiraLAX a couple times a day and some other laxative pills. She is passing gas several times a day. She does not have a history of bowel obstructions. She's not having any fevers or chills nausea or vomiting. She has had a bladder tuck, left tube removal and hysterectomy. She does not take opiates. Last week she had a fall hurting her ankle and low back. She has passed small amounts of runny stool. Allergies and Home Medications Allergies Coded Allergies: Penicillins (Verified Adverse Reaction, Mild, PT FATHER ALLERGIC, PT HERSELF HAS NOT REACTED TO N, 02/18/07) Home Medications Cefdinir 300 Mg Capsule, 300 MG PO BID Prescribed by: SHERRIE BILLINGS on 04/28/181932 Phenazopyridine HCl 200 Mg Tablet, 1 TAB PO TID Prescribed by: SHERRIE BILLINGS on 04/28/181932 Patient Home Medication List Home Medication List Reviewed: Yes Review of Systems Review of Systems Constitutional: No chills, No diaphoresis EENTM: No Blurred Vision, No Double Vision Respiratory: Denies Cough, Denies Shortness of Air Cardiovascular: Denies Chest Pain, Denies Irregular Heart Rate Gastrointestinal: Constipated; Denies Diarrhea Genitourinary: Denies Burning, Denies Discharge Musculoskeletal: No back pain, No joint pain All Other Systems Reviewed Negative Unless Noted: Yes Past Qdbtaij-Kshgog-Vureju Hx Patient Social History Alcohol Use: Denies Use Recreational Drug Use: Yes Drug of Choice: POT Smoking Status: Former Smoker Type Used: Cigarettes 2nd Hand Smoke Exposure: No Recent Foreign Travel: No Contact w/Someone Who Travel: No Recent Infectious Disease Expo: No Recent Hopitalizations: No Immunizations Up To Date Tetanus Booster (TDap): Unknown Seasonal Allergies Seasonal Allergies: No Past Medical History Surgeries: Yes (ECTOPIC W/ SALPINGECTOMY, RHINOPLASTY) Bladder Surgery, Hysterectomy, Tubal Ligation Respiratory: No Asthma Cardiac: Yes Hypertension Neurological: Yes Headaches /Migraines 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 Disorders: 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, 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 Sexually Transmitted Disease: Yes (HX OF PID) Genitourinary: Yes Bladder Infection Gastrointestinal: Yes (ELEVATED LIVER ENZYMES, ) Musculoskeletal: No Arthritis Endocrine: Yes (USED TO TAKE THYROID MEDS) Hypothyroidsim Cancer: No Psychosocial: Yes Depression Integumentary: No Blood Disorders: No Family Medical History Drug abuse 19 FATHER Thyroid disease 19 MOTHER No Pertinent Family Hx Physical Exam Vital Signs Vital Signs - First Documented 11/17/19 10:23 Temp 37.3 Pulse 90 Resp 20 B/P (MAP) 132/105 (114) Pulse Ox 98 O2 Delivery Room Air Capillary Refill : Less Than 3 Seconds Height/Weight/BMI Height: 5'5.00" Weight: 227lbs. oz. 102.505941pw; 37.00 BMI Method:Stated General Appearance: WD/WN, mild distress HEENT: PERRL/EOMI, pharynx normal Neck: full range of motion, normal inspection Respiratory: lungs clear, normal breath sounds, no respiratory distress, no accessory muscle use Cardiovascular: normal peripheral pulses, regular rate, rhythm, no edema Peripheral Pulses: 2+ Radial Pulses (R), 2+ Radial Pulses (L) Gastrointestinal: normal bowel sounds, soft; No rebound; tenderness (mild all 4 quadrants without mesenteric signs, psoas, heeltap tenderness) Extremities: normal range of motion, non-tender, normal capillary refill Neurologic/Psychiatric: alert, normal mood/affect, oriented x 3 Skin: normal color, warm/dry Progress/Results/Core Measures Results/Orders Vital Signs/I&O 11/17/19 10:23 Temp 37.3 Pulse 90 Resp 20 B/P (MAP) 132/105 (114) Pulse Ox 98 O2 Delivery Room Air Blood Pressure Mean: 114 Progress Progress Note : Time: 10:58 Progress Note Stress related obstipation. She has aseptic vital signs and a nonacute abdomen. Plan to put her out on a more aggressive bowel regimen. Return precautions discussed. Departure Impression Primary Impression: Obstipation Disposition: 01 HOME, SELF-CARE Condition: Stable Departure-Patient Inst. Decision time for Depature: 10:59 Referrals: MOHINDER MARIN DO (PCP/Family) Primary Care Physician Patient Instructions: Constipation, Adult (DC) Add. Discharge Instructions: Continue eating a high-fiber diet. Drink lots of fluids. MiraLAX 1-2 capfuls and 6-8 ounces of fluid every 4 hours until results. Fleet enema one or 2 a day. Ondansetron one tablet every 6 hours as necessary for nausea or vomiting. Tylenol 1000 mg every 8 hours as necessary for abdominal discomfort. Ibuprofen 800 mg every 8 hours as necessary for abdominal discomfort. Return to the ER if you have intractable, severe pain, intractable nausea, other worrisome symptoms. Expect significant results in the next 24-48 hours. All discharge instructions reviewed with patient and/or family. Voiced understanding. Scripts Ondansetron (Ondansetron Odt) 4 Mg Tab.rapdis 4 MG PO Q6H PRN for NAUSEA/VOMITING, #8 TAB 0 Refills Prov: PATI GARCIA 11/17/19 Na Phos,M-B/Na Phos,Di-Ba (Fleet Enema) 133 Ml Enema 133 ML RC BID PRN for CONSTIPATION-2ND LINE, #2 EA 0 Refills Prov: PATI GARCIA 11/17/19 Polyethylene Glycol 3350 (Miralax) 119 Gm Powder 17 GM PO Q4H PRN for CONSTIPATION-1ST LINE, #1 EA 0 Refills Prov: PATI GARCIA 11/17/19 Work/School Note: Work Release Form Date Seen in the Emergency Department: Nov 17, 2019 Return to Work: Nov 19, 2019 Restrictions: No Restrictions PATI GARCIA Nov 17, 2019 11:02
== END 2019-11-17 11:08 | disposition home or self-care (01) ==
LOC: EDUNIT# 10:15 → ER 10:16
DX: K59.00 Constipation, unspecified (principal); Z88.0 Allergy status to penicillin; Z87.891 Personal history of nicotine dependence
CPT/HCPCS: 99282